=== PATIENT | male | born 1990 | race African-American/Black ===

== ENCOUNTER 2018-11-23 08:21 | Emergency (ER) | payer MEDICAID ==
[~2018-11-23] VITALS: Ht 177.8 cm; Wt 100.0 kg
[2018-11-23] MEDS ORDERED: LEVETIRACETAM 500MG PREMIX 100 ML IV ONE (08:30)
[2018-11-23 08:46] LABS: BASOPHILS % 0.5 % (0.0-2.0); EOSINOPHILS % 2.3 % (0.0-5.0); HEMATOCRIT. 42.9 % (42.0-52.0); HEMOGLOBIN. 13.9 g/dL (14.0-18.0); MEAN CORPUSCULAR HEMOGLOBIN 27.1 pg (28.0-32.0); MEAN CORPUSCULAR VOLUME 83.7 fL (80.0-94.0); MEAN PLATELET VOLUME 6.9 fl (7.4-10.4); MONOCYTES % 10.6 % (2.0-8.0); NEUTROPHILS % 60.6 % (40.0-76.0); PLATELET 353 x1000/uL (130-400); RED BLOOD CELL COUNT 5.12 mill/uL (4.7-6.1); RED CELL DISTRIBUTION WIDTH 14.9 % (11.6-14.6)
[2018-11-23 08:51] LABS: CHLORIDE 107 mEq/L (98-107)
[2018-11-23 08:55] LABS: ETHANOL BLOOD < 10 mg/dL
[2018-11-23] MEDS ORDERED: KETOROLAC 15MG/ML VIAL IV ONE (10:30)
[2018-11-23 12:31] VITALS: BP 135/83
== END 2018-11-23 12:36 | disposition home or self-care (01) ==
LOC: ER 08:21
DX: G40.909 Epilepsy, unspecified, not intractable, without status epilepticus (principal)
CPT/HCPCS: 36415; 80053; 80320; 85025; 96365; 96366; 96375; 99283; J1885; J1953; G0480